=== PATIENT | female | born 1970 | race African-American/Black ===

== ENCOUNTER 2016-11-26 10:13 | Inpatient (IN) | payer OTHER ==
--- NOTE | 2016-11-26 10:23 | PDOC ---
History of Present Illness - General Chief Complaint: Shortness of Breath Stated Complaint: (PCP SENT) O2 TREATMENT Time Seen by Provider: 11/26/16 10:22 History Source: Patient - History of Present Illness Initial Comments: 11/26/16 13:05 46 year old female was sent by Dr. Sky from his office after he found high D- dimer and was desaturating. A/c to the patient, she developed respiratory tract infection like symptoms in October, saw her PCP and was given antibiotics. Even after completing the antibiotics, patients symtoms didn't resolve completely. Since then, has had persistent nasal stuffiness, felt congested in the chest, wheezing during evening and while laying down flat. Patient has been taking inhaler 3times/day 2-3times/week. Fever (Tmax 99F) no chills, rigors, sweating, cough, palpitations or chest pain. Denies abdominal pain, nausea or vomiting. Past Medical Hx: Asthma, H. pylori, Sarcoidosis (Dx in 2005), Hypertension Allergies: NKDA Surgical Hx: Left eyelid surgery, C-sec x 1, anorectal wart removal, liver biopsy for the dx of sarcoidosis. Hospitalization: No recent hospitalization Social: Current smoker, smokes 3 cigs/day since teenager Smokes marijuana, last smoked yesterday No other drugs PCP: Dr. Jaida Menchaca (Cardiologist0 Dr. Sky (Coupler) Past History - Past Medical History Allergies/Adverse Reactions: Allergies Allergy/AdvReac Type Severity Reaction Status Date / Time shellfish derived Allergy "SWELLING, Verified 11/26/16 10:16 THROAT CLOSES" Home Medications: Ambulatory Orders Albuterol Sulfate Inhaler - [Ventolin HFA Inhaler -] 1 - 2 inh PO PRN PRN Hydrochlorothiazide [Hctz -] 25 mg PO DAILY 01/15/15 Omeprazole [Prilosec] 40 mg PO DAILY 01/15/15 Cyanocobalamin [Vitamin B12 -] 100 mcg PO DAILY 01/24/15 Loratadine [Claritin -] 10 mg PO PRN PRN 01/24/15 Multivitamins [Multivit ([facility] Formulary)] 1 tab PO DAILY 01/24/15 Oxycodone HCl/Acetaminophen [Percocet 5/325 -] 1 - 2 tab PO Q6H #20 tab Prednisone 10 mg PO DAILY 11/26/16 Anemia: No Asthma: Yes (NO RECENT ATTACK) Cancer: (SARCOIDOSIS) Cardiac Disorders: No CVA: No COPD: No CHF: No Dementia: No Diabetes: No GI Disorders: Yes (GERD,) 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) HTN: Yes Hypercholesterolemia: No Liver Disease: Yes (ABNORMAL LIVER TEST) Seizures: No Thyroid Disease: No - Surgical History Abdominal Surgery: No Appendectomy: No Cardiac Surgery: No Cholecystectomy: No Lung Surgery: No Neurologic Surgery: No Orthopedic Surgery: No - Immunization History Immunization Up to Date: Yes - Psycho/Social/Smoking Cessation Hx Anxiety: No Suicidal Ideation: No Smoking History: Never smoked Have you smoked in the past 12 months: No Number of Cigarettes Smoked Daily: 3 Information on smoking cessation initiated: No 'Breaking Loose' booklet given: 10/08/15 Hx Alcohol Use: No Drug/Substance Use Hx: Yes Substance Use Type: Marijuana Hx Substance Use Treatment: No Review of Systems - Review of Systems Able to Perform ROS?: Yes Comments:: 11/26/16 14:39 CONSTITUTIONAL: Absent: fever, chills, diaphoresis, generalized weakness, malaise, loss of appetite HEENT: Present: nasal congestion Absent: rhinorrhea, throat pain, throat swelling, difficulty swallowing, mouth swelling, ear pain, eye pain, visual Changes CARDIOVASCULAR: Absent: chest pain, syncope, palpitations, irregular heart rate, lightheadedness , peripheral edema RESPIRATORY: Present: Occasional Wheezing,dyspnea with exertion Absent: cough, shortness of breath,orthopnea, wheezing, stridor, hemoptysis GASTROINTESTINAL: Absent: abdominal pain, abdominal distension, nausea, vomiting, diarrhea, constipation, melena, hematochezia GENITOURINARY: Absent: dysuria, frequency, urgency, hesitancy, hematuria, flank pain, genital pain MUSCULOSKELETAL:~ Absent: myalgia, arthralgia, joint swelling SKIN: Absent: rash, itching, pallor HEMATOLOGIC/IMMUNOLOGIC: Absent: easy bleeding, easy bruising, lymphadenopathy, frequent infections ENDOCRINE: Absent: unexplained weight gain, unexplained weight loss, heat intolerance, cold intolerance NEUROLOGIC: Absent: headache, focal weakness or paresthesias, dizziness, unsteady gait, seizure, mental status changes, bladder or bowel incontinence PSYCHIATRIC: Absent: anxiety, depression, suicidal or homicidal ideation, hallucinations. *Physical Exam - Vital Signs Last Vital Signs Temp Pulse Resp BP Pulse Ox 98.7 F 120 H 20 147/93 94 L 11/26/16 10:11/26/16 10:11/26/16 10:11/26/16 10:11/26/16 10:11/26/16 14:42 PE: GENERAL: Awake, alert, and fully oriented, in no acute distress HEAD: No signs of trauma EYES: B/L eyelid swelling (normal for her), minimal exophthalmus, PERRLA, EOMI, sclera anicteric, conjunctiva clear ENT: Auricles normal inspection, hearing grossly normal, nares patent, oropharynx clear without exudates. Moist mucosa NECK: Normal ROM, supple, no lymphadenopathy, JVD, or masses LUNGS: Breath sounds equal, clear to auscultation bilaterally. Occasional wheeze, and no crackles. HEART: Regular rate and rhythm, normal S1 and S2, no murmurs, rubs or gallops ABDOMEN: Soft, nontender, normoactive bowel sounds. No guarding, no rebound. No masses EXTREMITIES: Normal range of motion, no edema. No clubbing or cyanosis. No cords, erythema, or tenderness NEUROLOGICAL: Cranial nerves II through XII grossly intact. Normal speech, Gait not observed SKIN: Warm, Dry, normal turgor, no rashes or lesions noted. ED Treatment Course - LABORATORY CBC & Chemistry Diagram: 11/26/16 11:16 11/26/16 11:16 Medical Decision Making - Medical Decision Making 11/26/16 14:44 46 year old female with significant PMH oc Sarcoidosis (dx in 2005), Hypertension, H. pylori, Asthma, HTN was sent by Dr. Sky for the evaluation of increased D-dimer, desaturating at rest and SOB at exertion. # Dyspnea on exertion Differential diagnosis includes: Worsening of Sarcoidosis of the lung which is most likely Pneumonia likely as she recently got treated for LRTI but symptoms still persisting ACS less likely-No chest pain Less likely GI origin Ordered CBC, CMP, PEFR, UA, CTA EKG showed S1 Q3 T3 Most likely will admit the patient once we get results back. 11/26/16 15:25 Patient reassessed. Patient breathing comfortably with nasal oxygen @ 2L. All labs and imaging reviewed. # Acute Hypoxic respiratory failure Most likely secondary to underlying Sarcoidosis Patient's saturation ranges between 88-94% with nasal oxygen Pulmonary embolism ruled out-CTA negative for PE Discussed with Dr. Sky. Will admit the patient in Med-Surg for further evaluation Illness, Investigation and Plan of care explained to the patient. She verbalized understanding. Case seen and discussed with Dr. Sloan. *DC/Admit/Observation/Transfer Diagnosis at time of Disposition: Acute respiratory failure with hypoxia, Sarcoid - Discharge Dispostion Admit: Yes - Referrals Referrals: Jaida Keane, TRAINING AND DEVELOPMENT PROJECT LEADER [Primary Care Provider] -
[2016-11-26] MEDS ORDERED: methylPREDNISolone NA SUCC 125 MG/2 ML VIAL IVPB ONE (10:54)
[2016-11-26] MEDS: ALBUTEROL SO4 0.083% IH SOL 2.5 MG/3 ML VIAL.NEB. NEB PRN ×3 (11:00→11:40)
[2016-11-26] MEDS ORDERED: methylPREDNISolone NA SUCC 125 MG/2 ML VIAL ONE (11:04)
[2016-11-26 11:47] LABS: BASOPHIL 1.2 % (0-2.0); MCH 28.4 pg (25.7-33.7); MCHC 33.6 g/dl (32.0-36.0); MEAN CELL VOLUME 84.4 fl (80-96); MEAN PLT VOLUME 9.1 fl (7.5-11.1); NEUTROPHILS 56.2 % (42.8-82.8); PLATELET COUNT 180 K/MM3 (134-434); RDW 14.9 % (11.6-15.6); WHITE BLOOD COUNT 5.1 K/mm3 (4.0-10.0)
[2016-11-26 12:04] LABS: ALBUMIN 3.6 g/dl (3.4-5.0); ANION GAP 10 (8-16); BILIRUBIN,TOTAL 0.8 mg/dL (0.2-1.0); CO2 30 mmol/L (21-32); CREATININE 0.9 mg/dL (0.55-1.02); GLUCOSE,RANDOM 95 mg/dL (74-106); SGOT/AST 52 U/L (15-37); SGPT/ALT 41 U/L (12-78); TOT PROT 8.9 g/dl (6.4-8.2)
[2016-11-26 12:05] LABS: ALK PHOS 592 U/L (45-117)
[2016-11-26] MEDS ORDERED: OXYCODONE/APAP 5/325MG COMBO TABLET ONE (14:06)
[2016-11-26] MEDS ORDERED: OXYCODONE/APAP 5/325MG COMBO TABLET PO ONE (14:09)
--- NOTE | 2016-11-26 15:11 | EKG ---
Test Reason : Blood Pressure : / mmHG Vent. Rate : 101 BPM Atrial Rate : 101 BPM P-R Int : 128 ms QRS Dur : 084 ms QT Int : 360 ms P-R-T Axes : 050 028 010 degrees QTc Int : 466 ms SINUS TACHYCARDIA POSSIBLE LEFT ATRIAL ENLARGEMENT LEFT VENTRICULAR HYPERTROPHY ABNORMAL ECG WHEN COMPARED WITH ECG OF 09-OCT-2015 11:08, NO SIGNIFICANT CHANGE WAS FOUND Confirmed by TYLER NGUYỄN MD ([id number]) on 11/26/2016 3:10:59 PM Referred By: Confirmed By:TYLER NGUYỄN MD
--- NOTE | 2016-11-26 15:13 | PN ---
Progress Note (short form) - Note Progress Note: Cardiology Consult Dictated Sarcoidosis with skin and liver involvement Exercise O2 desaturation with sinus tachycardia and + D-dimer REC: 1. F/u CTA chest, r/o PE or presence of sarcoid lung involvement. 2. Echo to evaluate for PHTN
--- NOTE | 2016-11-26 15:38 | PDOC ---
Attending Attestation - Resident Resident Name: Neda Bell - ED Attending Attestation I have performed the following: I have examined & evaluated the patient, The case was reviewed & discussed with the resident, I agree w/resident's findings & plan, Exceptions are as noted - HPI HPI: 11/26/16 15:35 Patient is a 46-year-old female with history of sarcoid who presents to the ER with difficulty breathing, hypoxemia which is exacerbated with minimal exertion and an elevated d-dimer obtained at the outpatient lactation coordinator office. - Physicial Exam PE: 11/26/16 15:36 Patient is awake and alert, obese, hypoxemic requiring supplemental O2 via nasal cannula at 4 L/m to maintain oxygen saturation of 96-97%. Lungs are clear , there is no lower extremity edema, RRR, abdomen is soft and nontender. - Medical Decision Making 11/26/16 15:37 Patient is a 46-year-old female with history of sarcoidosis who presents with difficulty breathing and hypoxemia as well as elevated d-dimer. Differential diagnoses includes worsening interstitial lung disease versus pulmonary embolism versus infectious process. CBC/CMP within normal limit. CT of chest with IV contrast reveals no evidence of pulmonary embolism, bilateral increased calcified lymphadenopathy is noted. Increased interstitial markings are also noted. There is no evidence of an acute infectious process at this time. Patient will require admission for supplemental oxygen and steroid therapy at this time. Patient seen by Dr. Sky of pulmonary. He agrees with the plan of care.
--- NOTE | 2016-11-26 15:44 | HP ---
CHIEF COMPLAINT: Shortness of breath PCP: Dr. Jaida Keane Circulation Supervisor: Dr. 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 She has had dry cough, nasal congestion, and frontal headache past one month; she was recently treated by her PMD for bronchitis without . ER course was notable for: (1) EKG: Sinus tachycardia 101bpm with LVH, no significant change when compared with prior EKG of 10/09/2015 (2) CTA Chest: No evidence of PE. Interstitial thickening and nodularity ( mainly in the RUL) wit multiple mediastinal and hilar lymph nodes; no significant change when compared to prior of 12/16/2014 (3) Resting SpO2 92% on RA Recent Travel: None PAST MEDICAL HISTORY: As above PAST SURGICAL HISTORY: C/s x 1, excision of anal warts, liver biopsy Social History: Lives with daughter, receives disability Smokin cigarettes/daily Alcohol: None Drugs: Daily marijuana Family History: Non-contributory Allergies shellfish derived Allergy (Verified 11/26/16 10:16) "SWELLING, THROAT CLOSES" HOME MEDICATIONS: Home Medications Medication Instructions Recorded Albuterol Sulfate Inhaler - 1 - 2 inh PO PRN PRN 01/15/15 [Ventolin HFA Inhaler -] Hydrochlorothiazide [Hctz -] 25 mg PO DAILY 01/15/15 Omeprazole [Prilosec] 40 mg PO DAILY 01/15/15 Cyanocobalamin [Vitamin B12 -] 100 mcg PO DAILY 01/24/15 Loratadine [Claritin -] 10 mg PO PRN PRN 01/24/15 Multivitamins [Multivit ([facility] 1 tab PO DAILY 01/24/15 Formulary)] Oxycodone HCl/Acetaminophen 1 - 2 tab PO Q6H #20 tab 10/13/15 [Percocet 5/325 -] Prednisone 10 mg PO DAILY 11/26/16 REVIEW OF SYSTEMS CONSTITUTIONAL: Absent: fever, chills, diaphoresis, generalized weakness, malaise, loss of appetite, weight change HEENT: Nasal congestion, frontal headache Absent: rhinorrhea, throat pain, throat swelling, difficulty swallowing, mouth swelling, ear pain, eye pain, visual changes CARDIOVASCULAR: Absent: chest pain, syncope, palpitations, irregular heart rate, lightheadedness , peripheral edema RESPIRATORY: Shortness of breath on exertion, dry cough Absent: shortness of breath at rest, orthopnea, wheezing, stridor, hemoptysis GASTROINTESTINAL: Absent: abdominal pain, abdominal distension, nausea, vomiting, diarrhea, constipation, melena, hematochezia GENITOURINARY: Absent: dysuria, frequency, urgency, hesitancy, hematuria, flank pain, genital pain MUSCULOSKELETAL: Arthralgias, chronic low back pain Absent: joint swelling, neck pain SKIN: Absent: rash, itching, pallor HEMATOLOGIC/IMMUNOLOGIC: Absent: easy bleeding, easy bruising, lymphadenopathy, frequent infections ENDOCRINE: Absent: unexplained weight gain, unexplained weight loss, heat intolerance, cold intolerance NEUROLOGIC: Absent: headache, focal weakness or paresthesias, dizziness, unsteady gait, seizure, mental status changes, bladder or bowel incontinence PSYCHIATRIC: Absent: anxiety, depression, suicidal or homicidal ideation, hallucinations. PHYSICAL EXAMINATION Vital Signs - 24 hr 11/26/16 11/26/16 10:17 14:01 Temperature 98.7 F Pulse Rate 120 H Pulse Rate [ 112 H Apical] Respiratory 20 16 Rate Blood Pressure 147/93 Blood Pressure 146/78 [Right Arm] O2 Sat by Pulse 94 L Oximetry (%) GENERAL: Awake, alert, and fully oriented, in no acute distress. EYES: Pupils equal, round and reactive to light, extraocular movements intact, sclera anicteric, conjunctiva clear. No lid lag. EARS, NOSE, THROAT: Ears normal, nares patent, oropharynx clear without exudates. Moist mucous membranes. NECK: Normal range of motion, supple without lymphadenopathy, JVD, or masses. LUNGS: Scant expiratory wheezes. No tachypnea or accessory muscle use. HEART: Tachycardic. Regular rate and rhythm, normal S1 and S2 without murmur, rub or gallop. ABDOMEN: Soft, nontender, not distended, normoactive bowel sounds, no guarding, no rebound, no masses. No hepatomegaly or splenomegaly. MUSCULOSKELETAL: Normal range of motion at all joints. No bony deformities or tenderness. No CVA tenderness. UPPER EXTREMITIES: 2+ pulses, warm, well-perfused. No cyanosis. No clubbing. Cap refill <2 seconds. No peripheral edema. LOWER EXTREMITIES: 2+ pulses, warm, well-perfused. No calf tenderness. No peripheral edema. NEUROLOGICAL: Cranial nerves II-XII intact. Normal speech. Normal gait. PSYCHIATRIC: Cooperative. Good eye contact. Appropriate mood and affect. SKIN: Warm, dry, normal turgor, no rashes or lesions noted. Laboratory Results - last 24 hr 11/26/16 11/26/16 11/26/16 11:16 11:16 11:16 WBC 5.1 RBC 5.00 Hgb 14.2 Hct 42.2 MCV 84.4 MCHC 33.6 RDW 14.9 Plt Count 180 MPV 9.1 Neutrophils % 56.2 D Lymphocytes % 29.3 D Monocytes % 11.3 H Eosinophils % 2.0 D Basophils % 1.2 Sodium 138 Potassium 3.7 Chloride 98 Carbon Dioxide 30 Anion Gap 10 BUN 12 Creatinine 0.9 Creat Clearance w eGFR > 60 Random Glucose 95 Calcium 10.0 Total Bilirubin 0.8 AST 52 H ALT 41 Alkaline Phosphatase 592 H Total Protein 8.9 H Albumin 3.6 Serum , Qual Negative ASSESSMENT/PLAN: 46 year old female with hypoxemic respiratory failure, likely secondary to pulmonary sarcoidosis vs. pulmonary HTN. Problem List - Problem (1) Acute respiratory failure with hypoxia Assessment/Plan: -Supplemental O2 as needed to maintain saturation -Received Solu-Medrol 125mg IVPB in ED; continue 40mg IVPB q8h and taper as tolerated -Albuterol nebulizers q6h prn wheezing -Pulmonary following -Pre-/post-O2 saturation; evaluate for home O2 -Follow up echocardiogram; preliminary verbal report indicates pulmonary HTN Code(s): J96.01 - ACUTE RESPIRATORY FAILURE WITH HYPOXIA (2) Asthma Assessment/Plan: -As above Code(s): J45.909 - UNSPECIFIED ASTHMA, UNCOMPLICATED (3) Sarcoid Assessment/Plan: -As above Code(s): D86.9 - SARCOIDOSIS, UNSPECIFIED (4) HTN (hypertension) Assessment/Plan: -Slightly above goal -Continue home HCTZ -Monitor Code(s): I10 - ESSENTIAL (PRIMARY) HYPERTENSION (5) Nicotine dependence Assessment/Plan: -Nicoderm 7mg transdermal patch daily Code(s): F17.200 - NICOTINE DEPENDENCE, UNSPECIFIED, UNCOMPLICATED (6) DVT prophylaxis Assessment/Plan: -Lovenox 40mg sq daily -Early ambulation Code(s): CHT7941 - Visit type - Emergency Visit Emergency Visit: Yes ED Registration Date: 11/26/16 Care time: The patient presented to the Emergency Department on the above date and was hospitalized for further evaluation of their emergent condition. - New Patient This patient is new to me today: Yes Date on this admission: 11/26/16 - Critical Care Critical Care patient: No
[2016-11-26] MEDS ORDERED: OXYCODONE/APAP 5/325MG COMBO TABLET PO PRN (15:46)
--- NOTE | 2016-11-26 16:00 | PN ---
Progress Note (short form) - Note Progress Note: PULMONARY CONSULTATION DICTATED 11/26/16 IMP ACUTE HYPOXEMIC RESPIRATORY FAILURE ADVANCED PULMONARY SARCOID H/O ASTHMA RECENT URI LIKELY PULMONARY HTN LIKELY OSAS PLAN IV STEROIDS INHALED BRONCHODILATORS NASAL O2 ECHO PFTS OUTPATIENT SLEEP STUDIES OUTPATIENT DR PATEL Problem List - Problems (1) Acute respiratory failure with hypoxia Code(s): J96.01 - ACUTE RESPIRATORY FAILURE WITH HYPOXIA (2) Sarcoid Code(s): D86.9 - SARCOIDOSIS, UNSPECIFIED (3) Asthma Code(s): J45.909 - UNSPECIFIED ASTHMA, UNCOMPLICATED (4) HTN (hypertension) Code(s): I10 - ESSENTIAL (PRIMARY) HYPERTENSION
[2016-11-26] MEDS ORDERED: oxyCODONE HCL 5 MG TABLET PO PRN ×2 (16:18→16:19)
[2016-11-26] MEDS ORDERED: ACETAMINOPHEN 325 MG TABLET (FP) PO PRN ×2 (16:18→16:19)
[2016-11-26 18:03] VITALS: BMI 42.0
[2016-11-26] MEDS ORDERED: INFLUENZA VACCINE 45 MCG/0.5 ML (MDV 16-17) IM ONE (18:30)
[2016-11-26] MEDS: DOCUSATE SODIUM 100 MG CAPSULE (FP) PO SCH (21:48)
[2016-11-26] MEDS: ALPRAZolam 0.25 MG TABLET PO PRN (21:48)
[2016-11-26] MEDS: NICOTINE 7 MG/24 HOURS TOPICAL PATCH TD SCH (21:48)
[2016-11-26] MEDS: methylPREDNISolone NA SUCC 40 MG/1 ML VIAL IVPB SCH (21:49)
--- NOTE | 2016-11-26 22:03 | CONS ---
DATE OF CONSULTATION: 11/26/2016 REFERRING PHYSICIAN: Leonides Sloan MD HISTORY: The patient is a 46-year-old black female known to me from previous office visit with past medical history of sarcoidosis diagnosed in 2006 by liver biopsy , history of asthma, hypertension, history of tobacco use currently still smoking a few cigarettes daily admitted to [facility] with hypoxemia. The patient states she has developed a cough and URI symptoms in October. At the time, she was placed by a PMD on antibiotics. She initially showed some improvement. Since that time, she has had persistent shortness of breath and occasional cough and wheezing predominantly at night. She presented to my office yesterday. At the time, she denied any significant shortness of breath, chest pains, or palpable. Initially on physical examination she was noted to have normal O2 saturation of 95% on room air at rest as well as mildly tachycardic with a heart rate of 112. After walking her, her saturations dropped down to 85 with increasing heart rate. At the time, she was referred to [facility]. She went to [facility] and had a similar study performed that revealed the same results. D-dimer was performed, which at the time was elevated. She was advised to go to the hospital for further evaluation. In the ER, she underwent a CTA, which was negative for pulmonary embolism and feel just increase in interstitial markings bilaterally with no significant change since 2014. Of note, she is currently maintained on steroids 20 mg daily the past couple of years. She has been followed by a couple of different rheumatologists on an outpatient basis. She denies any fevers, weight loss, or night sweats. She denies hemoptysis. There is no history of respiratory failure on past ventilatory support. She also states she is a heavy snorer, and she also has occasional daytime sleepiness. Of note, sleep study was often recommended to her 2 years ago as well as 3 years ago, which she refused. Of note, I have not seen the patient in my office over the past 2-1/2 to 3 years. PAST MEDICAL HISTORY: Sarcoidosis, hypertension. SOCIAL HISTORY: Positive for history of tobacco use. Currently still smokes a few cigarettes daily. REVIEW OF SYSTEMS: No orthopnea. Positive cough. Positive occasional nocturnal wheezes. No chest pain, no palpitations. No fever, no weight loss, no night sweats, no hemoptysis. PHYSICAL EXAMINATION: General: The patient is a well-developed, well-nourished female awake and alert in no acute distress. Vital Signs: She is currently afebrile. Heart rate is 112 at rest, blood pressure 146/78, respiratory rate 16, O2 saturation 94% on 2 L. HEENT: Normocephalic and atraumatic. Neck: Supple. Heart: Tachycardic with a normal S1, S2. Chest: Diminished breath sounds bilaterally. Abdomen: Soft. Bowel sounds are positive. Extremities: No cyanosis or edema. LABORATORIES: WBC 5.1, hemoglobin 14.2, hematocrit 42.2 with a platelet count of 180,000. Electrolytes: BUN 12, creatinine 0.9. Of note, alkaline phosphatase is 592, AST 52, total protein 8.9, D-dimer 466. IMAGING STUDIES: Chest CT reveals no evidence of pulmonary embolism. There is interstitial thickening and nodularity mainly in the right upper lobe without change from previous exam in 2015 and multiple small mediastinal hilar nodes, which is no change. Evidence of splenomegaly and possible hepatomegaly. IMPRESSION: 1. Acute hypoxemic respiratory failure likely secondary to underlying advanced sarcoid. 2. Rule out possible interstitial lung disease. 3. Rule out possible underlying exacerbation of some chronic obstructive pulmonary disease secondary to recent upper respiratory infection. 4. Likely pulmonary hypertension. 5. Likely obstructive sleep apnea syndrome. PLAN: IV steroids, inhaled bronchodilators, supplemental O2. Also obtain echocardiogram. The patient will require home O2. A PFT as an outpatient. Monitor LFTs. Advise smoking cessation as well as sleep study as an outpatient. The patient consents. TOMAS PATEL M.D. [id number] MTDD
--- NOTE | 2016-11-26 22:19 | CONS ---
DATE OF CONSULTATION: 11/26/2016 CONSULTATION REQUESTED BY: Bassem Sky MD REASON FOR CONSULTATION: Exercise-induced tachycardia, possible pulmonary hypertension. HISTORY OF PRESENT ILLNESS: The patient is a 46-year-old female with sarcoidosis with skin and liver involvement, hypertension, admitted to the hospital by Dr. Sky for exercise-induced sinus tachycardia and O2 desaturation. The patient was also found to have an elevated D-dimer and was referred to the emergency room for a CTA of the chest to rule out pulmonary embolism, which is currently pending. On review of systems, she describes having flu in October with lingering symptoms, denies chest pain, chronic mild dyspnea on exertion, unchanged, no palpitations, syncope, or lower extremity edema. Denies fevers or chills. PAST MEDICAL HISTORY: Includes: 1. Sarcoidosis with involvement of the eyelid and skin, liver on liver biopsy. 2. Hypertension. 3. Seasonal allergies. 4. GERD. ALLERGIES: SHELLFISH. HOME MEDICATIONS: Prednisone 10 mg p.o. daily, Percocet 5/325 q.6 p.r.n., Prilosec 40 mg daily, multivitamin, Claritin 10 mg p.o. p.r.n., hydrochlorothiazide 25 mg p.o. daily, vitamin B12 and albuterol p.r.n. FAMILY HISTORY: Father had a myocardial infarction in his 60s. PAST SURGICAL HISTORY: Status post section, status post upper endoscopy. SOCIAL HISTORY: Smokes marijuana. No any loss of consciousness or illicit drugs. PHYSICAL EXAMINATION: Vital Signs: Temperature 98.7, pulse 112 and regular, blood pressure 146/78, O2 saturation 94 on 2 L. Neck: No bruits. No JVD. Heart: S1, S2 regular. No murmurs. Chest: No active wheezing. No rales. Abdomen: Obese, soft nontender. Extremities: No significant pitting edema. LABORATORY DATA: White count 5.1, hematocrit 42.2, platelets 180. Sodium 138, potassium 3.7, creatinine 0.9, AST 52, alkaline phosphatase 592, serum test negative. IMAGING: CTA scan of the chest is pending. Echo is pending. EKG shows sinus tachycardia, incomplete right bundle branch block, LVH. IMPRESSION: Sarcoidosis with skin and liver involvement with exercise induced oxygen desaturation and sins tachycardia with elevated D-dimer. PLAN: 1. Await results of CTA chest to rule out PE and/or cardiac lung involvement. 2. Echocardiogram today to rule out presence of pulmonary hypertension. Thanks for the consultation. TYLER NGUYỄN M.D. [id number]
[2016-11-27] MEDS: methylPREDNISolone NA SUCC 40 MG/1 ML VIAL IVPB SCH ×3 (02:23→18:25)
[2016-11-27] MEDS: DOCUSATE SODIUM 100 MG CAPSULE (FP) PO SCH ×3 (06:10→21:26)
[2016-11-27 07:57] LABS: BASOPHIL 0.2 % (0-2.0); MCH 28.3 pg (25.7-33.7); MCHC 33.4 g/dl (32.0-36.0); MEAN CELL VOLUME 84.6 fl (80-96); MEAN PLT VOLUME 8.9 fl (7.5-11.1); NEUTROPHILS 77.6 % (42.8-82.8); PLATELET COUNT 178 K/MM3 (134-434); RDW 14.8 % (11.6-15.6); WHITE BLOOD COUNT 3.8 K/mm3 (4.0-10.0)
[2016-11-27 08:28] LABS: ALBUMIN 3.4 g/dl (3.4-5.0); ANION GAP 10 (8-16); CALCIUM 9.8 mg/dL (8.5-10.1); CO2 30 mmol/L (21-32); CREATININE 0.9 mg/dL (0.55-1.02); GLUCOSE,RANDOM 120 mg/dL (74-106); MAGNESIUM 2.3 mg/dL (1.8-2.4); SGOT/AST 48 U/L (15-37); SGPT/ALT 45 U/L (12-78)
[2016-11-27 08:32] LABS: ALK PHOS 576 U/L (45-117); BILIRUBIN,TOTAL 0.8 mg/dL (0.2-1.0)
[2016-11-27] MEDS: ENOXAPARIN NA (PORCINE) 40 MG/0.4 ML DISP.SYRIN SQ SCH (10:02)
[2016-11-27] MEDS: HYDROCHLOROTHIAZIDE 25 MG TABLET (FP) PO SCH (10:02)
[2016-11-27] MEDS: PANTOPRAZOLE 40 MG TABLET (FP) PO SCH (10:02)
[2016-11-27] MEDS: MULTIVITAMINS (DAILY MVI) TABLET (FP) PO SCH (10:02)
[2016-11-27] MEDS: NICOTINE 7 MG/24 HOURS TOPICAL PATCH TD SCH (10:03)
[2016-11-27] MEDS: CYANOCOBALAMIN (VITAMIN B-12) 100 MCG TABLET PO SCH (11:00)
--- NOTE | 2016-11-27 11:04 | PN ---
Progress Note, Physician History of Present Illness: seen and examined today in [facility]. no overnight events. no new complaints. states she is feeling much better today. - Current Medication List Current Medications: Active Medications Acetaminophen (Tylenol -) 325 mg PO Q6H PRN PRN Reason: PAIN Acetaminophen (Tylenol -) 650 mg PO Q6H PRN PRN Reason: PAIN Albuterol Sulfate (Ventolin 0.083% Nebulizer Soln -) 1 amp NEB Q6H PRN PRN Reason: SHORT OF BREATH/WHEEZING Alprazolam (Xanax -) 0.25 mg PO Q8H PRN PRN Reason: ANXIETY Last Admin: 11/26/16 21:48 Dose: 0.25 mg Cyanocobalamin (Vitamin B12 -) 100 mcg PO DAILY [facility] Docusate Sodium (Colace -) 100 mg PO TID [facility] Last Admin: 11/27/16 06:10 Dose: 100 mg Enoxaparin Sodium (Lovenox -) 40 mg SQ DAILY [facility] Last Admin: 11/27/16 10:02 Dose: 40 mg Hydrochlorothiazide (Hctz -) 25 mg PO DAILY [facility] Last Admin: 11/27/16 10:02 Dose: 25 mg Methylprednisolone Sodium Succinate (Solu-Medrol -) 40 mg IVPB Q8H-IV [facility] Last Admin: 11/27/16 10:02 Dose: 40 mg Multivitamins/Minerals/Vitamin C (Tab-A-Vit -) 1 tab PO DAILY [facility] Last Admin: 11/27/16 10:02 Dose: 1 tab Nicotine (Nicoderm Patch -) 7 mg TD DAILY [facility] Last Admin: 11/27/16 10:03 Dose: 7 mg Oxycodone HCl (Roxicodone -) 5 mg PO Q6H PRN PRN Reason: PAIN SCALE 1-5 Last Admin: 11/27/16 05:06 Dose: 5 mg Oxycodone HCl (Roxicodone -) 10 mg PO Q6H PRN PRN Reason: PAIN SCALE 6-10 Pantoprazole Sodium (Protonix -) 40 mg PO DAILY [facility] Last Admin: 11/27/16 10:02 Dose: 40 mg - Objective Vital Signs: Vital Signs Temperature 98.0 F 11/27/16 04:00 Pulse Rate 100 H 11/27/16 04:00 Respiratory Rate 20 11/27/16 04:00 Blood Pressure 120/84 02/18/17 04:00 O2 Sat by Pulse Oximetry (%) 98 11/26/16 21:00 Constitutional: Yes: No Distress, Calm, Obese Eyes: Yes: WNL, Conjunctiva Clear, EOM Intact, PERRL HENT: Yes: WNL, Atraumatic, Normocephalic Neck: Yes: WNL, Supple, Trachea Midline Cardiovascular: Yes: WNL, Regular Rate and Rhythm, S1, S2. No: Bradycardia, Tachycardia, Pulse Irregular, Bruit, JVD, Gallop, Murmur, Rub, S3, S4, Varicosities Respiratory: Yes: Regular. No: Rales, Rhonchi, Wheezes Gastrointestinal: Yes: WNL, Normal Bowel Sounds, Soft. No: Distention, Tenderness Musculoskeletal: Yes: WNL Extremities: Yes: WNL Edema: No Peripheral Pulses WNL: Yes Peripheral Pulses: Left Doralis Pedis: 2+, Right Dorsalis Pedis: 2+ Integumentary: Yes: WNL Neurological: Yes: WNL, Alert, Oriented, Cran Nerves II-XII Intact ...Motor Strength: WNL Psychiatric: Yes: WNL, Alert, Oriented Labs: CBC, BMP 11/27/16 06:30 11/27/16 06:30 - ....Imaging Chest X-ray: Report Reviewed, Image Reviewed EKG: Report Reviewed, Image Reviewed Other: Report Reviewed, Image Reviewed Assessment/Plan Sarcoidosis with skin and liver involvement Exercise O2 desaturation with sinus tachycardia and + D-dimer REC: CTA chest showed no PE, but confirmed evidence of sarcoid Echo grossly normal LV function no pericardial effusion, unable to assess Pulm pressure Pt significantly improved since admission No additional inpatient cardiac work up needed at this point Pulm f/up
[2016-11-27] MEDS: ALBUTEROL SO4 0.083% IH SOL 2.5 MG/3 ML VIAL.NEB. NEB PRN (13:01)
--- NOTE | 2016-11-27 13:46 | PN ---
Progress Note (short form) - Note Progress Note: PULMONARY VSS/AFEBRILE 98% 2L/M O2 WANTS TO GO HOME ANICTERIC CLEAR S1S2 BS+OBESE NO EDEMA IMAGING/NOTES/MEDS/LABS REVIEWED IMP ACUTE HYPOXEMIC RESPIRATORY FAILURE ADVANCED PULMONARY SARCOID H/O ASTHMA RECENT URI LIKELY PULMONARY HTN LIKELY OSAS PLAN IV STEROIDS INHALED BRONCHODILATORS NASAL O2 ECHO PFTS OUTPATIENT SLEEP STUDIES OUTPATIENT WILL CHECK PRE/POST SPO2 R/A AMBULATION Ja LEBLANC MD
--- NOTE | 2016-11-27 13:59 | PN ---
Physical Exam: SUBJECTIVE: Patient seen and examined Patient is feeling better, with no acute distress, steroid IV helping her symptoms OBJECTIVE: Vital Signs Temperature 97.5 F L 11/27/16 08:00 Pulse Rate 69 11/27/16 08:00 Respiratory Rate 16 11/27/16 08:00 Blood Pressure 121/77 11/27/16 08:00 O2 Sat by Pulse Oximetry (%) 98 11/26/16 21:00 GENERAL: The patient is awake, alert, and fully oriented, in no acute distress. HEAD: Normal with no signs of trauma. EYES: PERRL, extraocular movements intact, sclera anicteric, conjunctiva clear. No ptosis. ENT: Ears normal, nares patent, oropharynx clear without exudates, moist mucous membranes. NECK: Trachea midline, full range of motion, supple. LUNGS: decreased Breath sounds BL, otherwise clear, no wheezes, no crackles, no accessory muscle use. HEART: Regular rate and rhythm, S1, S2 without murmur, rub or gallop. ABDOMEN: Soft, nontender, nondistended, normoactive bowel sounds, no guarding, no rebound, no hepatosplenomegaly, no masses. EXTREMITIES: 2+ pulses, warm, well-perfused, no edema. NEUROLOGICAL: Cranial nerves II through XII grossly intact. Normal speech, gait not observed. PSYCH: Normal mood, normal affect. SKIN: Warm, dry, normal turgor, no rashes or lesions noted Laboratory Results - last 24 hr 11/27/16 11/27/16 06:30 06:30 WBC 3.8 L RBC 4.87 Hgb 13.8 Hct 41.2 MCV 84.6 MCHC 33.4 RDW 14.8 Plt Count 178 MPV 8.9 Neutrophils % 77.6 D Lymphocytes % 18.7 D Monocytes % 3.5 L Eosinophils % 0.0 D Basophils % 0.2 Sodium 138 Potassium 4.1 Chloride 98 Carbon Dioxide 30 Anion Gap 10 BUN 16 D Creatinine 0.9 Creat Clearance w eGFR > 60 Random Glucose 120 H D Calcium 9.8 Magnesium 2.3 Total Bilirubin 0.8 AST 48 H ALT 45 Alkaline Phosphatase 576 H Total Protein 9.0 H Albumin 3.4 Active Medications Generic Name Dose Route Start Last Admin Trade Name Freq PRN Reason Stop Dose Admin Acetaminophen 325 mg 11/26/16 16:18 Tylenol - PO Q6H PRN PAIN Acetaminophen 650 mg 11/26/16 16:19 Tylenol - PO Q6H PRN PAIN Albuterol Sulfate 1 amp 11/26/16 15:47 11/27/16 13:01 Ventolin 0.083% Nebulizer Soln - NEB 1 amp Q6H PRN Administration SHORT OF BREATH/WHEEZING Alprazolam 0.25 mg 11/26/16 16:29 11/26/16 21:48 Xanax - PO 0.25 mg Q8H PRN Administration ANXIETY Cyanocobalamin 100 mcg 11/27/16 10:00 Vitamin B12 - PO DAILY [facility] Docusate Sodium 100 mg 11/26/16 22:00 11/27/16 06:10 Colace - PO 100 mg TID [facility] Administration Enoxaparin Sodium 40 mg 11/27/16 10:00 11/27/16 10:02 Lovenox - SQ 40 mg DAILY [facility] Administration Hydrochlorothiazide 25 mg 11/27/16 10:00 11/27/16 10:02 Hctz - PO 25 mg DAILY [facility] Administration Methylprednisolone Sodium Succinate 40 mg 11/26/16 18:00 11/27/16 10:02 Solu-Medrol - IVPB 40 mg Q8H-IV [facility] Administration Multivitamins/Minerals/Vitamin C 1 tab 11/27/16 10:00 11/27/16 10:02 Tab-A-Vit - PO 1 tab DAILY [facility] Administration Nicotine 7 mg 11/26/16 16:00 11/27/16 10:03 Nicoderm Patch - TD 7 mg DAILY [facility] Administration Oxycodone HCl 5 mg 11/26/16 16:18 11/27/16 05:06 Roxicodone - PO 5 mg Q6H PRN Administration PAIN SCALE 1-5 Oxycodone HCl 10 mg 11/26/16 16:19 Roxicodone - PO Q6H PRN PAIN SCALE 6-10 Pantoprazole Sodium 40 mg 11/27/16 10:00 11/27/16 10:02 Protonix - PO 40 mg DAILY [facility] Administration CTA chest showed no PE, but confirmed evidence of sarcoid Echocardiogram; Reviewed Echo grossly normal LV function no pericardial effusion, unable to assess Pulm pressure Pt significantly improved since admission ASSESSMENT/PLAN: 46 year old female with hypoxemic respiratory failure, likely secondary to pulmonary sarcoidosis vs. pulmonary HTN. # Acute hypoxic respiratory failure on 2l oxygen keep sats.above 93% Received Solu-Medrol 125mg IVPB in ED; continue 40mg IVPB q8h , Albuterol nebulizers q6h prn wheezing Pulmonary consult appreciated , evaluate for home O2. # Asthma on IV Solu Medrol will continue # Acute Pulmonary sarcoidosis on BRONCHODILATORS # Chronic Back pain On Oxycodone continue # Pulmonary HTN # Nicotine dependence-Nicoderm 7mg transdermal patch daily PFT, sleep studies as an outpatient DVT Px: SCds Visit type - Emergency Visit Emergency Visit: Yes ED Registration Date: 11/26/16 Care time: The patient presented to the Emergency Department on the above date and was hospitalized for further evaluation of their emergent condition. - New Patient This patient is new to me today: Yes Date on this admission: 11/27/16 - Critical Care Critical Care patient: No
[2016-11-27] MEDS: ALPRAZolam 0.25 MG TABLET PO PRN (18:25)
[2016-11-28] MEDS: methylPREDNISolone NA SUCC 40 MG/1 ML VIAL IVPB SCH ×2 (02:05→10:57)
[2016-11-28] MEDS: DOCUSATE SODIUM 100 MG CAPSULE (FP) PO SCH ×2 (06:09→14:15)
[2016-11-28] MEDS ORDERED: PT OWN MED DRAWER 7, Y5N ONE (09:27)
[2016-11-28] MEDS: ENOXAPARIN NA (PORCINE) 40 MG/0.4 ML DISP.SYRIN SQ SCH (10:56)
[2016-11-28] MEDS: NICOTINE 7 MG/24 HOURS TOPICAL PATCH TD SCH (10:56)
[2016-11-28] MEDS: PANTOPRAZOLE 40 MG TABLET (FP) PO SCH (10:57)
[2016-11-28] MEDS: MULTIVITAMINS (DAILY MVI) TABLET (FP) PO SCH (10:57)
[2016-11-28] MEDS: HYDROCHLOROTHIAZIDE 25 MG TABLET (FP) PO SCH (10:57)
[2016-11-28 11:21] VITALS: BP 122/84
[2016-11-28] MEDS: ALBUTEROL SO4 0.083% IH SOL 2.5 MG/3 ML VIAL.NEB. NEB PRN (11:40)
[2016-11-28 14:13] VITALS: PULSE 83; TEMP 97.5
[2016-11-28] MEDS: CYANOCOBALAMIN (VITAMIN B-12) 100 MCG TABLET PO SCH (14:15)
--- NOTE | 2016-11-28 14:39 | PN ---
Progress Note (short form) - Note Progress Note: PULMONARY VSS/AFEBRILE 98% ON R/A AFTER WALKING WANTS TO GO HOME ANICTERIC CLEAR S1S2 BS+OBESE NO EDEMA IMAGING/NOTES/MEDS/LABS REVIEWED IMP ACUTE HYPOXEMIC RESPIRATORY FAILURE ADVANCED PULMONARY SARCOID H/O ASTHMA RECENT URI LIKELY PULMONARY HTN LIKELY OSAS PLAN STEROIDS CHANGED TO ORAL INHALED BRONCHODILATORS NASAL O2 ECHO PFTS OUTPATIENT SLEEP STUDIES OUTPATIENT OK FOR DISCHARGE Ja LEBLANC MD
[2016-11-28] MEDS ORDERED: predniSONE 20 MG TABLET (UD) PO SCH (14:45)
--- NOTE | 2016-11-28 15:26 | PN ---
Progress Note (short form) - Note Progress Note: Patient is comfortable, would like to go home. Vital Signs Temperature 97.5 F L 11/28/16 14:13 Pulse Rate 83 11/28/16 14:13 Respiratory Rate 18 11/28/16 14:13 Blood Pressure 122/84 11/28/16 11:21 O2 Sat by Pulse Oximetry (%) 100 11/28/16 11:40 GENERAL: The patient is awake, alert, and fully oriented, in no acute distress. HEAD: Normal with no signs of trauma. EYES: PERRL, extraocular movements intact, sclera anicteric, conjunctiva clear. ENT: Ears normal, oropharynx clear without exudates, moist mucous membranes. NECK: Trachea midline, full range of motion, supple. LUNGS: Breath sounds equal, clear to auscultation bilaterally, no wheezes, no crackles, no accessory muscle use. HEART: Regular rate and rhythm, S1, S2 without murmur, rub or gallop. ABDOMEN: Soft, nontender, nondistended, normoactive bowel sounds, no guarding, no rebound, no hepatosplenomegaly, no masses. EXTREMITIES: 2+ pulses, warm, well-perfused, no edema. NEUROLOGICAL: Cranial nerves II through XII grossly intact. Normal speech, gait is steady . PSYCH: Normal mood, normal affect. SKIN: Warm, dry, normal turgor, no rashes or lesions noted CBCD WBC 3.8 K/mm3 (4.0-10.0) L 11/27/16 06:30 RBC 4.87 M/mm3 (3.60-5.2) 11/27/16 06:30 Hgb 13.8 GM/dL (10.7-15.3) 11/27/16 06:30 Hct 41.2 % (32.4-45.2) 11/27/16 06:30 MCV 84.6 fl (80-96) 11/27/16 06:30 MCHC 33.4 g/dl (32.0-36.0) 11/27/16 06:30 RDW 14.8 % (11.6-15.6) 11/27/16 06:30 Plt Count 178 K/MM3 (134-434) 11/27/16 06:30 MPV 8.9 fl (7.5-11.1) 11/27/16 06:30 CMP Sodium 138 mmol/L (136-145) 11/27/16 06:30 Potassium 4.1 mmol/L (3.5-5.1) 11/27/16 06:30 Chloride 98 mmol/L (98-107) 11/27/16 06:30 Carbon Dioxide 30 mmol/L (21-32) 11/27/16 06:30 Anion Gap 10 (8-16) 11/27/16 06:30 BUN 16 mg/dL (7-18) D 11/27/16 06:30 Creatinine 0.9 mg/dL (0.55-1.02) 11/27/16 06:30 Creat Clearance w eGFR > 60 (>60) 11/27/16 06:30 Random Glucose 120 mg/dL (74-106) H D 11/27/16 06:30 Calcium 9.8 mg/dL (8.5-10.1) 11/27/16 06:30 Total Bilirubin 0.8 mg/dL (0.2-1.0) 11/27/16 06:30 AST 48 U/L (15-37) H 11/27/16 06:30 ALT 45 U/L (12-78) 11/27/16 06:30 Alkaline Phosphatase 576 U/L (45-117) H 11/27/16 06:30 Total Protein 9.0 g/dl (6.4-8.2) H 11/27/16 06:30 Albumin 3.4 g/dl (3.4-5.0) 11/27/16 06:30 Current Medications Generic Name Dose Route Start Last Admin Trade Name Freq PRN Reason Stop Dose Admin Acetaminophen 325 mg 11/26/16 16:18 Tylenol - PO Q6H PRN PAIN Acetaminophen 650 mg 11/26/16 16:19 Tylenol - PO Q6H PRN PAIN Albuterol Sulfate 1 amp 11/26/16 15:47 11/28/16 11:40 Ventolin 0.083% Nebulizer Soln - NEB 1 amp Q6H PRN Administration SHORT OF BREATH/WHEEZING Alprazolam 0.25 mg 11/26/16 16:29 11/27/16 18:25 Xanax - PO 0.25 mg Q8H PRN Administration ANXIETY Cyanocobalamin 100 mcg 11/27/16 10:00 02/19/17 14:15 Vitamin B12 - PO 100 mcg DAILY [facility] Administration Docusate Sodium 100 mg 11/26/16 22:00 11/28/16 14:15 Colace - PO 100 mg TID [facility] Administration Enoxaparin Sodium 40 mg 11/27/16 10:00 11/28/16 10:56 Lovenox - SQ 40 mg DAILY [facility] Administration Hydrochlorothiazide 25 mg 11/27/16 10:00 11/28/16 10:57 Hctz - PO 25 mg DAILY [facility] Administration Multivitamins/Minerals/Vitamin C 1 tab 11/27/16 10:00 11/28/16 10:57 Tab-A-Vit - PO 1 tab DAILY [facility] Administration Nicotine 7 mg 11/26/16 16:00 11/28/16 10:56 Nicoderm Patch - TD 7 mg DAILY [facility] Administration Oxycodone HCl 5 mg 11/26/16 16:18 11/27/16 05:06 Roxicodone - PO 5 mg Q6H PRN Administration PAIN SCALE 1-5 Pantoprazole Sodium 40 mg 11/27/16 10:00 11/28/16 10:57 Protonix - PO 40 mg DAILY [facility] Administration Prednisone 20 mg 11/28/16 14:45 Deltasone - PO DAILY [facility] Home Medications Medication Instructions Recorded Albuterol Sulfate Inhaler - 1 - 2 inh PO PRN PRN 01/15/15 [Ventolin HFA Inhaler -] Hydrochlorothiazide [Hctz -] 25 mg PO DAILY 01/15/15 Omeprazole [Prilosec] 40 mg PO DAILY 01/15/15 Cyanocobalamin [Vitamin B12 -] 100 mcg PO DAILY 01/24/15 Loratadine [Claritin -] 10 mg PO PRN PRN 01/24/15 Multivitamins [Multivit ([facility] 1 tab PO DAILY 01/24/15 Formulary)] Docusate Sodium [Colace -] 100 mg PO TID capsule 11/28/16 Oxycodone HCl/Acetaminophen 1 tab PO Q6H #12 tab MDD 4 11/28/16 [Percocet 5-325 mg Tablet] Prednisone [Deltasone -] 20 mg PO DAILY tablet 11/28/16 CTA chest showed no PE, but confirmed evidence of sarcoid Echocardiogram; Reviewed Echo grossly normal LV function no pericardial effusion, unable to assess Pulm pressure Pt significantly improved since admission ASSESSMENT/PLAN: 46 year old female with hypoxemic respiratory failure, likely due to pulmonary sarcoidosis # Acute hypoxic respiratory failure due improved ,discussed with ok to discharge the patient on Prednisone 20mg po daily .continue nebulizers q6h prn wheezing # Asthma on steroid continue # Acute Pulmonary sarcoidosis BRONCHODILATORS # Pulmonary HTN # Nicotine dependence-Nicoderm 7mg transdermal patch daily PFT, sleep studies as an outpatient with follow with in a week Visit type - Emergency Visit Emergency Visit: Yes ED Registration Date: 11/26/16 Care time: The patient presented to the Emergency Department on the above date and was hospitalized for further evaluation of their emergent condition. - New Patient This patient is new to me today: No - Critical Care Critical Care patient: No
--- NOTE | 2016-11-28 17:55 | DS ---
Physical Exam: SUBJECTIVE: Patient seen and examined Patient is comfortable, would like to go home. OBJECTIVE: Vital Signs Temperature 97.5 F L 11/28/16 14:13 Pulse Rate 83 11/28/16 14:13 Respiratory Rate 18 11/28/16 14:13 Blood Pressure 122/84 11/28/16 11:21 O2 Sat by Pulse Oximetry (%) 100 11/28/16 11:40 PHYSICAL EXAM GENERAL: The patient is awake, alert, and fully oriented, in no acute distress. HEAD: Normal with no signs of trauma. EYES: PERRL, extraocular movements intact, sclera anicteric, conjunctiva clear. ENT: Ears normal, oropharynx clear without exudates, moist mucous membranes. NECK: Trachea midline, full range of motion, supple. LUNGS: Breath sounds equal, clear to auscultation bilaterally, no wheezes, no crackles, no accessory muscle use. HEART: Regular rate and rhythm, S1, S2 without murmur, rub or gallop. ABDOMEN: Soft, nontender, nondistended, normoactive bowel sounds, no guarding, no rebound, no hepatosplenomegaly, no masses. EXTREMITIES: 2+ pulses, warm, well-perfused, no edema. NEUROLOGICAL: Cranial nerves II through XII grossly intact. Normal speech, gait is steady . PSYCH: Normal mood, normal affect. SKIN: Warm, dry, normal turgor, no rashes or lesions noted CBCD WBC 3.8 K/mm3 (4.0-10.0) L 11/27/16 06:30 RBC 4.87 M/mm3 (3.60-5.2) 11/27/16 06:30 Hgb 13.8 GM/dL (10.7-15.3) 11/27/16 06:30 Hct 41.2 % (32.4-45.2) 11/27/16 06:30 MCV 84.6 fl (80-96) 11/27/16 06:30 MCHC 33.4 g/dl (32.0-36.0) 11/27/16 06:30 RDW 14.8 % (11.6-15.6) 11/27/16 06:30 Plt Count 178 K/MM3 (134-434) 11/27/16 06:30 MPV 8.9 fl (7.5-11.1) 11/27/16 06:30 CMP Sodium 138 mmol/L (136-145) 11/27/16 06:30 Potassium 4.1 mmol/L (3.5-5.1) 11/27/16 06:30 Chloride 98 mmol/L (98-107) 11/27/16 06:30 Carbon Dioxide 30 mmol/L (21-32) 11/27/16 06:30 Anion Gap 10 (8-16) 11/27/16 06:30 BUN 16 mg/dL (7-18) D 11/27/16 06:30 Creatinine 0.9 mg/dL (0.55-1.02) 11/27/16 06:30 Creat Clearance w eGFR > 60 (>60) 11/27/16 06:30 Random Glucose 120 mg/dL (74-106) H D 11/27/16 06:30 Calcium 9.8 mg/dL (8.5-10.1) 11/27/16 06:30 Total Bilirubin 0.8 mg/dL (0.2-1.0) 11/27/16 06:30 AST 48 U/L (15-37) H 11/27/16 06:30 ALT 45 U/L (12-78) 11/27/16 06:30 Alkaline Phosphatase 576 U/L (45-117) H 11/27/16 06:30 Total Protein 9.0 g/dl (6.4-8.2) H 11/27/16 06:30 Albumin 3.4 g/dl (3.4-5.0) 11/27/16 06:30 Home Medications Medication Instructions Recorded Albuterol Sulfate Inhaler - 1 - 2 inh PO PRN PRN 01/15/15 [Ventolin HFA Inhaler -] Hydrochlorothiazide [Hctz -] 25 mg PO DAILY 01/15/15 Omeprazole [Prilosec] 40 mg PO DAILY 01/15/15 Cyanocobalamin [Vitamin B12 -] 100 mcg PO DAILY 01/24/15 Loratadine [Claritin -] 10 mg PO PRN PRN 01/24/15 Multivitamins [Multivit ([facility] 1 tab PO DAILY 01/24/15 Formulary)] Docusate Sodium [Colace -] 100 mg PO TID capsule 11/28/16 Oxycodone HCl/Acetaminophen 1 tab PO Q6H #12 tab MDD 4 11/28/16 [Percocet 5-325 mg Tablet] Prednisone [Deltasone -] 20 mg PO DAILY tablet 11/28/16 Current Medications Generic Name Dose Route Start Last Admin Trade Name Freq PRN Reason Stop Dose Admin Acetaminophen 325 mg 11/26/16 16:18 Tylenol - PO Q6H PRN PAIN Acetaminophen 650 mg 11/26/16 16:19 Tylenol - PO Q6H PRN PAIN Albuterol Sulfate 1 amp 11/26/16 15:47 11/28/16 11:40 Ventolin 0.083% Nebulizer Soln - NEB 1 amp Q6H PRN Administration SHORT OF BREATH/WHEEZING Alprazolam 0.25 mg 11/26/16 16:29 11/27/16 18:25 Xanax - PO 0.25 mg Q8H PRN Administration ANXIETY Cyanocobalamin 100 mcg 11/27/16 10:00 11/28/16 14:15 Vitamin B12 - PO 100 mcg DAILY [facility] Administration Docusate Sodium 100 mg 11/26/16 22:00 11/28/16 14:15 Colace - PO 100 mg TID [facility] Administration Enoxaparin Sodium 40 mg 11/27/16 10:00 11/28/16 10:56 Lovenox - SQ 40 mg DAILY [facility] Administration Hydrochlorothiazide 25 mg 11/27/16 10:00 11/28/16 10:57 Hctz - PO 25 mg DAILY [facility] Administration Multivitamins/Minerals/Vitamin C 1 tab 11/27/16 10:00 11/28/16 10:57 Tab-A-Vit - PO 1 tab DAILY [facility] Administration Nicotine 7 mg 11/26/16 16:00 11/28/16 10:56 Nicoderm Patch - TD 7 mg DAILY [facility] Administration Oxycodone HCl 5 mg 11/26/16 16:18 11/27/16 05:06 Roxicodone - PO 5 mg Q6H PRN Administration PAIN SCALE 1-5 Pantoprazole Sodium 40 mg 11/27/16 10:00 11/28/16 10:57 Protonix - PO 40 mg DAILY [facility] Administration Prednisone 20 mg 11/28/16 14:45 Deltasone - PO DAILY [facility] CTA chest showed no PE, but confirmed evidence of sarcoid Echocardiogram; Reviewed Echo grossly normal LV function no pericardial effusion, unable to assess Pulm pressure Pt significantly improved since admission HOSPITAL COURSE: Date of Admission:11/26/16 Date of Discharge: 11/28/16 46 year old female with hypoxemic respiratory failure, likely due to pulmonary sarcoidosis # Acute hypoxic respiratory failure due improved ,discussed with ok to discharge the patient on Prednisone 20mg po daily .continue nebulizers q6h prn wheezing # Asthma on steroid continue # Acute Pulmonary sarcoidosis BRONCHODILATORS # Pulmonary HTN # Nicotine dependence-Nicoderm 7mg transdermal patch daily PFT, sleep studies as an outpatient with follow with in a week Minutes to complete discharge: 35 Discharge Summary Reason For Visit: ACUTE RESPIRATORY FAILURE WITH HYPOXIA Current Active Problems Acute respiratory failure with hypoxia (Acute) Asthma (Acute) DVT prophylaxis (Acute) HTN (hypertension) (Acute) Nicotine dependence (Acute) Sarcoid (Acute) Condition: Stable - Instructions Diet, Activity, Other Instructions: Low fat/Low carb diet Pulmonary Function test ,and sleep studies as an outpatient with Referrals: Jaida Keane NP [Primary Care Provider] - Td Suarez MD [Staff Physician] - 1 Week Disposition: HOME - Home Medications Comprehensive Discharge Medication List: Ambulatory Orders Albuterol Sulfate Inhaler - [Ventolin HFA Inhaler -] 1 - 2 inh PO PRN PRN Hydrochlorothiazide [Hctz -] 25 mg PO DAILY 01/15/15 Omeprazole [Prilosec] 40 mg PO DAILY 01/15/15 Cyanocobalamin [Vitamin B12 -] 100 mcg PO DAILY 01/24/15 Loratadine [Claritin -] 10 mg PO PRN PRN 01/24/15 Multivitamins [Multivit ([facility] Formulary)] 1 tab PO DAILY 01/24/15 Docusate Sodium [Colace -] 100 mg PO TID capsule 11/28/16 Oxycodone HCl/Acetaminophen [Percocet 5-325 mg Tablet] 1 tab PO Q6H #12 tab MDD 4 11/28/16 Prednisone [Deltasone -] 20 mg PO DAILY tablet 11/28/16 This patient is new to me today: No Emergency Visit: Yes ED Registration Date: 11/26/16 Care time: The patient presented to the Emergency Department on the above date and was hospitalized for further evaluation of their emergent condition. Critical Care patient: No - Discharge Referral Referred to [facility] No
== END 2016-11-28 17:30 | disposition home or self-care (01) | DRG 133 ==
LOC: JER 10:13 → JERBED 15:43 → J7W 17:00
PROVIDERS: ADMIT Internal Medicine; ATTEND Internal Medicine
DX: J96.01 Acute respiratory failure with hypoxia (principal); D86.9 Sarcoidosis, unspecified; F17.210 Nicotine dependence, cigarettes, uncomplicated; I10 Essential (primary) hypertension; I27.2 Other secondary pulmonary hypertension; G47.33 Obstructive sleep apnea (adult) (pediatric); M54.89 Other dorsalgia
CPT/HCPCS: 36415; 71260-TC; 80053; 83735; 84703; 85025; 93005; 93010; 93306-TC; 94640; 94761; 99284-25; G0008; Q2037

== ENCOUNTER 2020-12-02 14:06 | Emergency (ER) | payer OTHER ==
[2020-12-02 14:14] VITALS: BP 113/79; PULSE 99; TEMP 97.5; BMI 35.2
[2020-12-02] MEDS ORDERED: ACETAMINOPHEN 500 MG TABLET (FP) PO ONE (14:48)
[2020-12-02] MEDS ORDERED: ACETAMINOPHEN 500 MG TABLET (FP) ONE (14:50)
== END 2020-12-02 15:04 | disposition home or self-care (01) ==
LOC: JERFT 14:06
DX: M25.571 Pain in right ankle and joints of right foot (principal); M25.572 Pain in left ankle and joints of left foot
CPT/HCPCS: 99283-25

== ENCOUNTER 2021-02-06 14:35 | Inpatient (IN) | payer OTHER ==
[2021-02-06] MEDS ORDERED: LACTATED RINGERS SOLUTION 1000 ML INFUS.BAG IV ONE (15:14)
[2021-02-06 15:43] LABS: BASO % 0.8 % (0-2.0); HEMATOCRIT 39.2 % (32.4-45.2); HEMOGLOBIN 13.1 GM/dL (10.7-15.3); LYMPH % 14.1 % (8-40); MCH 32.4 pg (25.7-33.7); MCHC 33.6 g/dl (32.0-36.0); MEAN CELL VOLUME 96.5 fl (80-96); MEAN PLT VOLUME 9.2 fl (7.5-11.1); MONO % 2.8 % (3.8-10.2); NEUT % 82.3 % (42.8-82.8); PLATELET COUNT 189 K/MM3 (134-434); RBC 4.06 M/mm3 (3.60-5.2); WHITE BLOOD COUNT 9.3 K/mm3 (4.0-10.0)
[2021-02-06 16:10] LABS: CALCIUM 8.8 mg/dL (8.5-10.1)
[2021-02-06 16:11] LABS: ALBUMIN 3.1 g/dl (3.4-5.0); BLOOD UREA NITROGEN 18.8 mg/dL (7-18); MAGNESIUM 2.1 mg/dL (1.8-2.4)
[2021-02-06 16:14] LABS: CREATININE 1.2 mg/dL (0.55-1.3)
[2021-02-06 16:15] LABS: BILIRUBIN,TOTAL 0.4 mg/dL (0.2-1)
[2021-02-06 16:17] LABS: TOT PROT 7.7 g/dl (6.4-8.2)
[2021-02-06] MEDS ORDERED: ACETAMINOPHEN 325 MG TABLET (FP) PO ONE (17:06)
[2021-02-06] MEDS ORDERED: ACETAMINOPHEN 325 MG TABLET (FP) ONE (17:28)
[2021-02-06] MEDS ORDERED: ERYTHROMYCIN 0.5% OPHTHALMIC OINTMENT 3.5 GM TUBE OS ONE (18:20)
[2021-02-06 19:11] LABS: EPI CELLS 18 /uL (0-25.1); HYALINE CASTS 0 /uL (0-3.1); PH,URINE 6.5 (5.0-8.0); URINE APPEARANCE CLEAR; URINE BACTERIA 1466 /uL (0-1359); URINE BILIRUBIN NEGATIVE (NEGATIVE); URINE COLOR YELLOW; URINE GLUCOSE (UA) NEGATIVE (NEGATIVE); URINE KETONE NEGATIVE (NEGATIVE); URINE LEUK ESTERASE 1+ (NEGATIVE); URINE NITRITE NEGATIVE (NEGATIVE); URINE PROTEIN NEGATIVE (NEGATIVE); URINE RBC 4 /uL (0-23.9); URINE UROBILINOGEN 0.2 mg/dL (0.2-1.0); URINE WBC 31 /uL (0-25.8)
[2021-02-06] MEDS ORDERED: CEFTRIAXONE 1,000 MG in DEXTROSE 5%-WATER - 50 ML IVPB ONE (19:13)
[2021-02-06] MEDS ORDERED: CEFTRIAXONE 1 GM/50 ML BAG ONE (19:25)
[2021-02-06] MEDS ORDERED: ERYTHROMYCIN 0.5% OPHTHALMIC OINTMENT 3.5 GM TUBE ONE (19:25)
[2021-02-06] MEDS ORDERED: SODIUM CHLORIDE 0.9% 1000 ML INFUS.BAG IV ONE (21:17)
[2021-02-06] MEDS ORDERED: ALBUTEROL SO4 HFA INHALER IH PRN (21:24)
[2021-02-06] MEDS ORDERED: PATIENT'S OWN MEDICATION (NON-FORMULARY) (Oxycodone Hcl/Acetaminophen [Endocet 7.5-325 Mg PO PRN (21:24)
[2021-02-06] MEDS ORDERED: DOCUSATE SODIUM 100 MG CAPSULE (FP) PO PRN (21:24)
[2021-02-06] MEDS ORDERED: oxyCODONE HCL 5 MG TABLET PO PRN (21:29)
[2021-02-06] MEDS ORDERED: ACETAMINOPHEN 325 MG TABLET (FP) PO PRN (21:29)
[2021-02-06] MEDS: ERYTHROMYCIN 0.5% OPHTHALMIC OINTMENT 3.5 GM TUBE OS SCH (23:09)
[2021-02-07 00:57] VITALS: BMI 26.1
[2021-02-07] MEDS: ACETAMINOPHEN 325 MG TABLET (FP) PO PRN (04:54)
[2021-02-07 07:37] LABS: HEMATOCRIT 38.4 % (32.4-45.2); HEMOGLOBIN 13.1 GM/dL (10.7-15.3); MCH 32.6 pg (25.7-33.7); MEAN CELL VOLUME 95.9 fl (80-96); MEAN PLT VOLUME 8.7 fl (7.5-11.1); PLATELET COUNT 172 K/MM3 (134-434); RDW 17.8 % (11.6-15.6); WHITE BLOOD COUNT 5.6 K/mm3 (4.0-10.0)
[2021-02-07 07:57] LABS: CHLORIDE 104 mmol/L (98-107); SODIUM 140 mmol/L (136-145)
[2021-02-07 08:03] LABS: ALBUMIN 3.1 g/dl (3.4-5.0); ANION GAP 4 MMOL/L (8-16); BLOOD UREA NITROGEN 12.4 mg/dL (7-18); CALCIUM 8.8 mg/dL (8.5-10.1); CO2 32 mmol/L (21-32); GLUCOSE,RANDOM 86 mg/dL (74-106); MAGNESIUM 2.2 mg/dL (1.8-2.4)
[2021-02-07 08:05] LABS: SGOT/AST 56 U/L (15-37); SGPT/ALT 36 U/L (13-61)
[2021-02-07 08:06] LABS: PHOSPHOROUS 2.4 mg/dL (2.5-4.9)
[2021-02-07 08:07] LABS: BILIRUBIN,TOTAL 0.6 mg/dL (0.2-1); TOT PROT 7.5 g/dl (6.4-8.2)
[2021-02-07 08:10] LABS: ALK PHOS 550 U/L (45-117)
[2021-02-07] MEDS ORDERED: DEXTROSE 5%-WATER - 50 ML IVPB ONE (09:46)
[2021-02-07] MEDS ORDERED: cefTRIAXone SODIUM 1 GM VIAL ONE (09:46)
[2021-02-07] MEDS: CEFTRIAXONE 1 GM in DEXTROSE 5%-WATER - 50 ML IVPB SCH (09:58)
[2021-02-07] MEDS: oxyCODONE HCL 5 MG TABLET PO PRN ×2 (09:58→22:35)
[2021-02-07] MEDS ORDERED: ENOXAPARIN NA (PORCINE) 40 MG/0.4 ML DISP.SYRIN SQ SCH (10:00)
[2021-02-07] MEDS: ERYTHROMYCIN 0.5% OPHTHALMIC OINTMENT 3.5 GM TUBE OS SCH (10:06)
[2021-02-07] MEDS ORDERED: MOXIFLOXACIN HCL 0.5% OPHTHALMIC 3 ML BOTTLE OS SCH ×3 (14:00→15:00)
[2021-02-07] MEDS ORDERED: PT OWN MED DRAWER 7, Y5N ONE ×2 (17:41→23:29)
[2021-02-07] MEDS: PREGABALIN 50 MG CAPSULE PO SCH (21:16)
[2021-02-07] MEDS: MYCOPHENOLATE MOFETIL 500 MG TABLET PO SCH (21:19)
[2021-02-07] MEDS: HEPARIN NA (PORCINE) 5,000 UNITS/ML 1ML VIAL SQ SCH (21:19)
[2021-02-07] MEDS: MOXIFLOXACIN HCL 0.5% OPHTHALMIC 3 ML BOTTLE OS SCH (21:20)
[2021-02-07] MEDS ORDERED: TOBRAMYCIN 0.3% OPHTH OINT 3.5 GM OS SCH ×2 (22:00)
[2021-02-08] MEDS: HEPARIN NA (PORCINE) 5,000 UNITS/ML 1ML VIAL SQ SCH ×3 (05:45→21:00)
[2021-02-08] MEDS: MYCOPHENOLATE MOFETIL 500 MG TABLET PO SCH ×3 (05:46→21:03)
[2021-02-08] MEDS: MOXIFLOXACIN HCL 0.5% OPHTHALMIC 3 ML BOTTLE OS SCH ×4 (05:47→21:01)
[2021-02-08] MEDS ORDERED: PT OWN MED DRAWER 7, Y5N ONE ×3 (06:16→20:37)
[2021-02-08 07:46] LABS: BASO % 0.9 % (0-2.0); EOS % 1.9 % (0-4.5); HEMATOCRIT 37.8 % (32.4-45.2); HEMOGLOBIN 12.6 GM/dL (10.7-15.3); LYMPH % 36.7 % (8-40); MCH 32.2 pg (25.7-33.7); MCHC 33.5 g/dl (32.0-36.0); MEAN CELL VOLUME 96.3 fl (80-96); MEAN PLT VOLUME 8.7 fl (7.5-11.1); MONO % 9.8 % (3.8-10.2); NEUT % 50.7 % (42.8-82.8); PLATELET COUNT 167 K/MM3 (134-434); RBC 3.93 M/mm3 (3.60-5.2); RDW 17.4 % (11.6-15.6); WHITE BLOOD COUNT 3.9 K/mm3 (4.0-10.0)
[2021-02-08 08:17] LABS: CALCIUM 8.7 mg/dL (8.5-10.1)
[2021-02-08 08:18] LABS: ALBUMIN 2.8 g/dl (3.4-5.0); MAGNESIUM 2.3 mg/dL (1.8-2.4)
[2021-02-08 08:20] LABS: BLOOD UREA NITROGEN 7.3 mg/dL (7-18)
[2021-02-08 08:22] LABS: BILIRUBIN,TOTAL 0.4 mg/dL (0.2-1); PHOSPHOROUS 2.7 mg/dL (2.5-4.9); TOT PROT 7.2 g/dl (6.4-8.2)
[2021-02-08] MEDS: oxyCODONE HCL 5 MG TABLET PO PRN ×2 (08:33→22:29)
[2021-02-08] MEDS ORDERED: cefTRIAXone SODIUM 1 GM VIAL ONE (10:04)
[2021-02-08] MEDS: PREGABALIN 50 MG CAPSULE PO SCH ×2 (10:10→21:02)
[2021-02-08] MEDS: CEFTRIAXONE 1 GM in DEXTROSE 5%-WATER - 50 ML IVPB SCH (10:10)
[2021-02-08] MEDS: ACETAMINOPHEN 325 MG TABLET (FP) PO PRN (17:34)
[2021-02-08] MEDS: TOBRAMYCIN 0.3% OPHTH OINT 3.5 GM OS SCH (21:01)
[2021-02-09] MEDS: HEPARIN NA (PORCINE) 5,000 UNITS/ML 1ML VIAL SQ SCH ×2 (05:22→13:07)
[2021-02-09] MEDS: MYCOPHENOLATE MOFETIL 500 MG TABLET PO SCH ×2 (05:22→13:07)
[2021-02-09] MEDS: oxyCODONE HCL 5 MG TABLET PO PRN (08:10)
[2021-02-09] MEDS ORDERED: DEXTROSE 5%-WATER - 50 ML IVPB ONE (08:48)
[2021-02-09] MEDS ORDERED: cefTRIAXone SODIUM 1 GM VIAL ONE (08:48)
[2021-02-09] MEDS: CEFTRIAXONE 1 GM in DEXTROSE 5%-WATER - 50 ML IVPB SCH (10:32)
[2021-02-09] MEDS: PREGABALIN 50 MG CAPSULE PO SCH (10:32)
[2021-02-09] MEDS: MOXIFLOXACIN HCL 0.5% OPHTHALMIC 3 ML BOTTLE OS SCH ×3 (10:34→17:31)
[2021-02-09] MEDS: TOBRAMYCIN 0.3% OPHTH OINT 3.5 GM OS SCH (10:34)
[2021-02-09 12:44] VITALS: PULSE 74
[2021-02-09 15:38] VITALS: BP 120/66; TEMP 98.5
[2021-02-09] MEDS: ACETAMINOPHEN 325 MG TABLET (FP) PO PRN (17:31)
[2021-02-10] MEDS ORDERED: CEFPODOXIME PROXETIL 100 MG TABLET PO SCH (10:00)
== END 2021-02-09 18:08 | disposition home or self-care (01) | DRG 720 ==
LOC: JER 14:35 → JERBED 17:35 → J8W 23:49
PROVIDERS: ADMIT Hospitalist; ATTEND Internal Medicine
DX: A41.9 Sepsis, unspecified organism (principal); N39.0 Urinary tract infection, site not specified; H10.9 Unspecified conjunctivitis; G62.9 Polyneuropathy, unspecified; G89.29 Other chronic pain; N18.9 Chronic kidney disease, unspecified; D86.84 Sarcoid pyelonephritis; G93.41 Metabolic encephalopathy; K21.9 Gastro-esophageal reflux disease without esophagitis
CPT/HCPCS: 36415; 70450-TC; 71045-TC-FY; 80053; 81003; 82962; 83036; 83735; 84100; 84484; 85025; 85027; 87040; 87086; 87186; 87899; 93005; 93010; 97116-GP; 97161-GP; 99285-25; C9803; J1644; J7517; U0003; U0005

== ENCOUNTER 2024-01-09 01:06 | Observation (INO) | payer OTHER ==
[2024-01-09 02:59] LABS: HEMATOCRIT 36.9 % (32.4-45.2); HEMOGLOBIN 11.7 GM/dL (10.7-15.3); MCH 26.1 pg (25.7-33.7); MCHC 31.6 g/dl (32.0-36.0); MEAN CELL VOLUME 82.8 fl (80-96); MEAN PLT VOLUME 7.7 fl (7.5-11.1); PLATELET COUNT 198 10^3/uL (134-434); RBC 4.46 M/mm3 (3.60-5.2); RDW 17.6 % (11.6-15.6)
[2024-01-09 03:04] LABS: INR 1.23 (0.83-1.09); PROTHROMBIN TIME (PATIENT) 14.2 SEC (9.7-13.0)
[2024-01-09 03:06] LABS: ACTIVATED PTT 40.8 SECONDS (25.2-36.5)
[2024-01-09] MEDS ORDERED: ACETAMINOPHEN INJECTION 100 ML IVPB ONE (03:26)
[2024-01-09 03:50] LABS: POTASSIUM 3.8 mmol/L (3.5-5.1)
[2024-01-09 03:51] LABS: CALCIUM 9.6 mg/dL (8.5-10.1)
[2024-01-09 03:52] LABS: BLOOD UREA NITROGEN 6.4 mg/dL (7-18)
[2024-01-09 03:57] LABS: BILIRUBIN,TOTAL 0.7 mg/dL (0.2-1); TOT PROT 8.3 g/dl (6.4-8.2)
[2024-01-09] MEDS: ACETAMINOPHEN 1000 MG/100 ML BAG IVPB ONE (04:27)
[2024-01-09] MEDS: SODIUM CHLORIDE 0.9% 500 ML INFUS.BAG IV ONE (04:27)
[2024-01-09 04:59] LABS: EPI CELLS >36 /uL (0-25.1); HYALINE CASTS 2 /uL (0-3.1); PH,URINE 6.5 (5.0-8.0); URINE APPEARANCE CLEAR; URINE BACTERIA 47 /uL (0-1359); URINE BILIRUBIN NEGATIVE (NEGATIVE); URINE COLOR DK YELLOW; URINE GLUCOSE (UA) NEGATIVE (NEGATIVE); URINE KETONE TRACE (NEGATIVE); URINE LEUK ESTERASE TRACE (NEGATIVE); URINE NITRITE NEGATIVE (NEGATIVE); URINE PROTEIN TRACE (NEGATIVE); URINE RBC 23 /uL (0-23.9); URINE WBC 19 /uL (0-25.8)
[2024-01-09 05:46] LABS: MAGNESIUM 1.7 mg/dL (1.8-2.4)
[2024-01-09] MEDS ORDERED: KETOROLAC TROMETHAMINE 30 MG/1 ML VIAL ONE (05:58)
[2024-01-09] MEDS: KETOROLAC TROMETHAMINE 30 MG/1 ML VIAL IVPUSH ONE (06:03)
[2024-01-09] MEDS ORDERED: ALBUTEROL SO4 0.083% IH SOL 2.5 MG/3 ML VIAL.NEB. NEB PRN (09:25)
[2024-01-09] MEDS ORDERED: PATIENT'S OWN MEDICATION (NON-FORMULARY) (Oxycodone Hcl/Acetaminophen [Endocet 10-325 Mg T PO PRN (09:28)
[2024-01-09] MEDS ORDERED: MAGNESIUM SULFATE IN WATER 2 GM/50 ML IVPB IVPB ONE (09:39)
[2024-01-09] MEDS: MAGNESIUM 2GM/50ML STERILE WATER IVPB IVPB ONE (09:57)
[2024-01-09] MEDS ORDERED: ACETAMINOPHEN 325 MG TABLET (FP) PO PRN (11:00)
[2024-01-09] MEDS ORDERED: LORATADINE 10 MG TABLET ONE (11:21)
[2024-01-09] MEDS ORDERED: FOLIC ACID 1 MG TABLET (FP) ONE (11:21)
[2024-01-09] MEDS ORDERED: ENOXAPARIN NA (PORCINE) 40 MG/0.4 ML DISP.SYRIN SQ ONE (11:22)
[2024-01-09] MEDS ORDERED: KETOROLAC TROMETHAMINE 15 MG/ML VIAL ONE (11:22)
[2024-01-09] MEDS: CYANOCOBALAMIN 1,000 MCG TABLET (FP) PO SCH (12:01)
[2024-01-09] MEDS: FOLIC ACID 1 MG TABLET (FP) PO SCH (12:02)
[2024-01-09] MEDS: LORATADINE 10 MG TABLET PO SCH (12:02)
[2024-01-09] MEDS: ENOXAPARIN NA (PORCINE) 40 MG/0.4 ML DISP.SYRIN SQ SCH (12:02)
[2024-01-09] MEDS: KETOROLAC TROMETHAMINE 15 MG/ML VIAL IM ONE (12:03)
[2024-01-09] MEDS: MYCOPHENOLATE MOFETIL 500 MG TABLET PO SCH (12:03)
[2024-01-09] MEDS ORDERED: ERYTHROMYCIN 0.5% OPHTHALMIC OINTMENT 3.5 GM TUBE ONE (14:23)
[2024-01-09] MEDS: ERYTHROMYCIN 0.5% OPHTHALMIC OINTMENT 3.5 GM TUBE OS SCH (14:24)
[2024-01-09] MEDS: ACETAMINOPHEN 500 MG TABLET (FP) PO SCH (14:41)
[2024-01-09] MEDS ORDERED: oxyCODONE HCL 5 MG TABLET ONE (18:16)
[2024-01-09] MEDS: oxyCODONE HCL 5 MG TABLET PO PRN (18:19)
[2024-01-09] MEDS ORDERED: MONTELUKAST NA 10 MG TABLET ONE (22:41)
[2024-01-09] MEDS: MONTELUKAST NA 10 MG TABLET PO SCH (22:48)
[2024-01-10 01:23] VITALS: RESP 18; BMI 29.0
[2024-01-10] MEDS: KETOROLAC TROMETHAMINE 15 MG/ML VIAL IM PRN (02:35)
[2024-01-10 08:28] LABS: BASO % 0.6 % (0-2.0); HEMATOCRIT 34.2 % (32.4-45.2); HEMOGLOBIN 10.5 GM/dL (10.7-15.3); LYMPH % 40.3 % (8-40); MCHC 30.9 g/dl (32.0-36.0); MEAN CELL VOLUME 84.4 fl (80-96); MEAN PLT VOLUME 7.9 fl (7.5-11.1); MONO % 8.7 % (3.8-10.2); NEUT % 47.4 % (42.8-82.8); PLATELET COUNT 150 10^3/uL (134-434); RBC 4.05 M/mm3 (3.60-5.2)
[2024-01-10 08:30] LABS: CHLORIDE 102 mmol/L (98-107); POTASSIUM 4.1 mmol/L (3.5-5.1); SODIUM 139 mmol/L (136-145)
[2024-01-10 08:37] LABS: ALBUMIN 2.7 g/dl (3.4-5.0); ANION GAP 7 mmol/L (4-13); BLOOD UREA NITROGEN 11.5 mg/dL (7-18); CALCIUM 9.8 mg/dL (8.5-10.1); CO2 30 mmol/L (21-32); GLUCOSE,RANDOM 85 mg/dL (74-106); MAGNESIUM 2.1 mg/dL (1.8-2.4); SGOT/AST 61 U/L (15-37); SGPT/ALT 33 U/L (13-61)
[2024-01-10 08:38] LABS: BILIRUBIN,TOTAL 0.9 mg/dL (0.2-1)
[2024-01-10 08:39] LABS: CREATININE 1.1 mg/dL (0.55-1.3); PHOSPHOROUS 3.6 mg/dL (2.5-4.9); TOT PROT 7.5 g/dl (6.4-8.2)
[2024-01-10 08:41] LABS: ALK PHOS 338 U/L (45-117)
[2024-01-10] MEDS: METHYL SALICYLATE/MENTHOL OINT 30 GM TUBE TP SCH (14:11)
[2024-01-11] MEDS: ALBUTEROL SO4 HFA INHALER IH PRN (09:40)
[2024-01-11] MEDS: LIDOCAINE 4% PATCH TP SCH (09:41)
[2024-01-11] MEDS: CYCLOBENZAPRINE HCL 5 MG TABLET PO PRN (09:42)
[2024-01-11] MEDS: GABAPENTIN 300 MG CAPSULE PO SCH (09:43)
[2024-01-11] MEDS: ACETAMINOPHEN 500 MG TABLET (FP) PO SCH (14:49)
[2024-01-11 15:05] VITALS: BP 101/57
[2024-01-11 18:09] VITALS: PULSE 76; TEMP 98.1
[2024-01-11] MEDS ORDERED: LIDOCAINE PATCH REMOVAL MC SCH (22:00)
== END 2024-01-11 19:20 ==
LOC: JER 01:06 → JERBED 06:22 → J8W 01-10 00:15
PROVIDERS: ADMIT Internal Medicine; ATTEND Nurse Practitioner Acute Care
PROC: 3E033NZ Introduction of Analgesics, Hypnotics, Sedatives into Peripheral Vein, Percutaneous Approach (ICD-10-PCS; principal; 2024-01-09)
PROC: 3E0333Z Introduction of Anti-inflammatory into Peripheral Vein, Percutaneous Approach (ICD-10-PCS; 2024-01-09)
PROC: 3E033GC Introduction of Other Therapeutic Substance into Peripheral Vein, Percutaneous Approach (ICD-10-PCS; 2024-01-09)
PROC: 3E023GC Introduction of Other Therapeutic Substance into Muscle, Percutaneous Approach (ICD-10-PCS; 2024-01-09)
PROC: 3E0233Z Introduction of Anti-inflammatory into Muscle, Percutaneous Approach (ICD-10-PCS; 2024-01-09)
DX: M17.11 Unilateral primary osteoarthritis, right knee (principal); H10.9 Unspecified conjunctivitis; M81.0 Age-related osteoporosis without current pathological fracture; H54.62 Unqualified visual loss, left eye, normal vision right eye; R53.1 Weakness; R26.2 Difficulty in walking, not elsewhere classified; I10 Essential (primary) hypertension; W18.39XA Other fall on same level, initial encounter; D86.9 Sarcoidosis, unspecified; Y93.89 Activity, other specified; N28.9 Disorder of kidney and ureter, unspecified; J45.909 Unspecified asthma, uncomplicated; Y92.009 Unspecified place in unspecified non-institutional (private) residence as the place of occurrence of the external cause; M54.50 Low back pain, unspecified; G89.29 Other chronic pain; F11.90 Opioid use, unspecified, uncomplicated; Z91.013 Allergy to seafood; Z88.8 Allergy status to other drugs, medicaments and biological substances
CPT/HCPCS: 0241U-QW; 36415; 70552-TC; 71045-TC-FY; 72131-TC; 72170-TC-FY; 73521-TC-FY; 73552-TC-LT-FY; 73552-TC-RT-FY; 73562-TC-LT-FY; 73562-TC-RT-FY; 80053; 81003; 82607; 83735; 84100; 84155; 84165; 84439; 84443; 84484; 85025; 85610; 85730; 86038; 87086; 93005; 93010; 96372; 96374; 96375; 97116-GP; 97161-GP; 99285-25; G0378; J0131; J7517

== ENCOUNTER 2024-01-17 15:22 | Inpatient (IN) | payer OTHER ==
[2024-01-17 17:03] LABS: VENOUS BASE EXCESS -0.5 mmol/L (-2-2); VENOUS O2 SATURATION 89.2 % (70-80); VENOUS PCO2 64.9 mmHg (38-52); VENOUS PH 7.256 (7.310-7.410)
[2024-01-17 17:07] LABS: BASO % 0.1 % (0-2.0); HEMATOCRIT 36.4 % (32.4-45.2); HEMOGLOBIN 11.6 GM/dL (10.7-15.3); LYMPH % 5.9 % (8-40); MCH 26.8 pg (25.7-33.7); MEAN CELL VOLUME 83.7 fl (80-96); MEAN PLT VOLUME 7.6 fl (7.5-11.1); MONO % 2.2 % (3.8-10.2); NEUT % 91.8 % (42.8-82.8); PLATELET COUNT 204 10^3/uL (134-434); RBC 4.35 M/mm3 (3.60-5.2); WHITE BLOOD COUNT 10.3 K/mm3 (4.0-10.0)
[2024-01-17 17:10] LABS: INR 0.98 (0.83-1.09); PROTHROMBIN TIME (PATIENT) 11.4 SEC (9.7-13.0)
[2024-01-17 17:12] LABS: ACTIVATED PTT 30.4 SECONDS (25.2-36.5)
[2024-01-17 17:31] LABS: CALCIUM 9.6 mg/dL (8.5-10.1)
[2024-01-17 17:35] LABS: ANISOCYTOSIS 2+; CREATININE 1.8 mg/dL (0.55-1.3); MACROCYTOSIS 0
[2024-01-17 17:36] LABS: BILIRUBIN,TOTAL 0.8 mg/dL (0.2-1); TOT PROT 8.3 g/dl (6.4-8.2)
[2024-01-17 17:42] LABS: BLOOD UREA NITROGEN 44.4 mg/dL (7-18)
[2024-01-17] MEDS ORDERED: PIPERACILLIN/TAZOB 3.375 GM 3.375 GM/50 ML BAG IVPB ONE (17:53)
[2024-01-17] MEDS: SODIUM CHLORIDE 0.9% 500 ML INFUS.BAG IV ONE (18:02)
[2024-01-17] MEDS: PIPERACILLIN/TAZOB 3.375 GM 3.375 GM in DEXTROSE 5%-WATER - 50 ML IVPB ONE (18:03)
[2024-01-17] MEDS: VANCOMYCIN HCL 1,500 MG in DEXTROSE 5%-WATER - 500 ML IVPB ONE (19:52)
[2024-01-17 20:54] LABS: VENOUS BASE EXCESS -2.6 mmol/L (-2-2); VENOUS O2 SATURATION 59.6 % (70-80); VENOUS PCO2 61.3 mmHg (38-52); VENOUS PH 7.241 (7.310-7.410)
[2024-01-17 21:00] LABS: PH,URINE 5.5 (5.0-8.0); URINE APPEARANCE CLEAR; URINE BILIRUBIN NEGATIVE (NEGATIVE); URINE COLOR YELLOW; URINE GLUCOSE (UA) NEGATIVE (NEGATIVE); URINE KETONE NEGATIVE (NEGATIVE); URINE LEUK ESTERASE NEGATIVE (NEGATIVE); URINE NITRITE NEGATIVE (NEGATIVE); URINE PROTEIN NEGATIVE (NEGATIVE)
[2024-01-17 23:31] VITALS: BMI 29.6
[2024-01-18] MEDS ORDERED: ALBUTEROL SO4 2.5/IPRATROPIUM 0.5 INH SOL 3 ML VIAL.NEB. NEB PRN (05:57)
[2024-01-18 08:30] LABS: BASO % 0.1 % (0-2.0); HEMATOCRIT 35.1 % (32.4-45.2); LYMPH % 11.5 % (8-40); MCH 26.4 pg (25.7-33.7); MCHC 31.4 g/dl (32.0-36.0); MEAN CELL VOLUME 83.8 fl (80-96); MEAN PLT VOLUME 7.5 fl (7.5-11.1); MONO % 5.9 % (3.8-10.2); NEUT % 82.5 % (42.8-82.8); PLATELET COUNT 206 10^3/uL (134-434); RBC 4.18 M/mm3 (3.60-5.2); RDW 18.2 % (11.6-15.6); WHITE BLOOD COUNT 10.7 K/mm3 (4.0-10.0)
[2024-01-18 08:53] LABS: POTASSIUM 4.4 mmol/L (3.5-5.1)
[2024-01-18 09:00] LABS: BLOOD UREA NITROGEN 36.5 mg/dL (7-18)
[2024-01-18 09:03] LABS: CALCIUM 9.7 mg/dL (8.5-10.1)
[2024-01-18 09:06] LABS: CREATININE 1.4 mg/dL (0.55-1.3)
[2024-01-18] MEDS: PIPERACILLIN/TAZOB 3.375 GM 3.375 GM in DEXTROSE 5%-WATER - 50 ML IVPB SCH (09:09)
[2024-01-18] MEDS: VANCOMYCIN/WATER FOR INJ (PEG) 1,000 MG/200 ML BAG IVPB SCH (09:09)
[2024-01-18] MEDS: DULoxetine HCL 30 MG CAPSULE.DR PO SCH (09:10)
[2024-01-18] MEDS: LORATADINE 10 MG TABLET PO SCH (09:10)
[2024-01-18] MEDS: predniSONE 20 MG TABLET (UD) PO SCH (09:10)
[2024-01-18] MEDS: guaiFENesin 200 MG/10 ML 10 ML UNIT-DOSE CUPS PO PRN (09:18)
[2024-01-18] MEDS: MYCOPHENOLATE MOFETIL 500 MG TABLET PO SCH (09:18)
[2024-01-18] MEDS ORDERED: PIPERACILLIN/TAZOB 3.375 GM 3.375 GM in DEXTROSE 5%-WATER - 50 ML IVPB SCH (10:00)
[2024-01-18] MEDS: oxyCODONE HCL 5 MG TABLET PO PRN (16:35)
[2024-01-18] MEDS: CEFTRIAXONE 1 GM in DEXTROSE 5%-WATER - 50 ML IVPB SCH (16:43)
[2024-01-18] MEDS ORDERED: ALBUTEROL SO4 0.083% IH SOL 2.5 MG/3 ML VIAL.NEB. NEB PRN (17:10)
[2024-01-18 17:58] LABS: ARTERIAL BLD GAS O2 SATURATION 89.2 % (95-98); ARTERIAL BLOOD GAS BASE EXCESS -1.3 mmol/L (-2-2); ARTERIAL BLOOD GAS PO2 58.3 mmHg (80-100); ARTERIAL BLOOD GAS pH 7.361 (7.350-7.450)
[2024-01-18 18:02] LABS: ALLENS TEST POSITIVE
[2024-01-18] MEDS: FLUTICASONE/UMECLIDIN/VILANTER(200-62.5-25 TRELEGY ELLIPTA) INAHLER IH SCH (19:30)
[2024-01-18] MEDS ORDERED: VANCOMYCIN 1,000 MG in DEXTROSE 5%-WATER - 250 ML IVPB SCH (20:00)
[2024-01-18] MEDS: ACETAMINOPHEN 500 MG TABLET (FP) PO PRN (21:07)
[2024-01-18] MEDS: MONTELUKAST NA 10 MG TABLET PO SCH (21:09)
[2024-01-19] MEDS: ONDANSETRON 4 MG/2 ML VIAL IVPUSH ONE (09:50)
[2024-01-19] MEDS: POLYETHYLENE GLYCOL (HEALTHYLAX) 3350 17 GM PACKET PO SCH (18:36)
[2024-01-20] MEDS: PANTOPRAZOLE 20 MG TABLET PO SCH (09:05)
[2024-01-20 11:35] LABS: BASO % 0.3 % (0-2.0); EOS % 0.2 % (0-4.5); HEMATOCRIT 35.7 % (32.4-45.2); HEMOGLOBIN 11.5 GM/dL (10.7-15.3); LYMPH % 12.1 % (8-40); MCH 26.7 pg (25.7-33.7); MCHC 32.2 g/dl (32.0-36.0); MEAN PLT VOLUME 7.5 fl (7.5-11.1); MONO % 6.5 % (3.8-10.2); NEUT % 80.9 % (42.8-82.8); PLATELET COUNT 214 10^3/uL (134-434); RDW 17.3 % (11.6-15.6); WHITE BLOOD COUNT 9.7 K/mm3 (4.0-10.0)
[2024-01-20 11:55] LABS: POTASSIUM 3.7 mmol/L (3.5-5.1)
[2024-01-20 11:57] LABS: BLOOD UREA NITROGEN 22.1 mg/dL (7-18); CALCIUM 10.3 mg/dL (8.5-10.1)
[2024-01-20 12:00] LABS: CREATININE 0.9 mg/dL (0.55-1.3)
[2024-01-21] MEDS: predniSONE 5 MG TABLET (UD) PO SCH (09:25)
[2024-01-23 08:45] LABS: BASO % 0.8 % (0-2.0); EOS % 1.2 % (0-4.5); HEMATOCRIT 37.3 % (32.4-45.2); HEMOGLOBIN 11.5 GM/dL (10.7-15.3); LYMPH % 16.8 % (8-40); MCH 26.1 pg (25.7-33.7); MCHC 30.8 g/dl (32.0-36.0); MEAN CELL VOLUME 84.6 fl (80-96); MEAN PLT VOLUME 8.7 fl (7.5-11.1); MONO % 6.5 % (3.8-10.2); NEUT % 74.7 % (42.8-82.8); PLATELET COUNT 221 10^3/uL (134-434); RBC 4.41 M/mm3 (3.60-5.2); RDW 17.5 % (11.6-15.6); WHITE BLOOD COUNT 8.2 K/mm3 (4.0-10.0)
[2024-01-23] MEDS: POLYETHYLENE GLYCOL (HEALTHYLAX) 3350 17 GM PACKET PO SCH (11:10)
[2024-01-23 12:11] LABS: BASO % 0.5 % (0-2.0); HEMATOCRIT 37.3 % (32.4-45.2); HEMOGLOBIN 11.6 GM/dL (10.7-15.3); MCH 26.3 pg (25.7-33.7); MCHC 31.2 g/dl (32.0-36.0); MEAN CELL VOLUME 84.5 fl (80-96); MEAN PLT VOLUME 8.4 fl (7.5-11.1); MONO % 6.8 % (3.8-10.2); NEUT % 72.7 % (42.8-82.8); PLATELET COUNT 236 10^3/uL (134-434); RBC 4.42 M/mm3 (3.60-5.2); RDW 16.8 % (11.6-15.6); WHITE BLOOD COUNT 8.7 K/mm3 (4.0-10.0)
[2024-01-24 07:40] LABS: BASO % 0.7 % (0-2.0); HEMOGLOBIN 11.8 GM/dL (10.7-15.3); LYMPH % 22.4 % (8-40); MCHC 31.9 g/dl (32.0-36.0); MEAN CELL VOLUME 84.5 fl (80-96); MEAN PLT VOLUME 8.6 fl (7.5-11.1); MONO % 7.8 % (3.8-10.2); NEUT % 68.1 % (42.8-82.8); PLATELET COUNT 254 10^3/uL (134-434); RBC 4.38 M/mm3 (3.60-5.2); RDW 17.1 % (11.6-15.6); WHITE BLOOD COUNT 7.9 K/mm3 (4.0-10.0)
[2024-01-24 07:50] LABS: POTASSIUM 3.9 mmol/L (3.5-5.1)
[2024-01-24 07:53] LABS: CALCIUM 10.6 mg/dL (8.5-10.1)
[2024-01-24 07:54] LABS: BLOOD UREA NITROGEN 22.2 mg/dL (7-18)
[2024-01-24 07:57] LABS: CREATININE 0.8 mg/dL (0.55-1.3)
[2024-01-24] MEDS: ARTIFICIAL TEARS OPHTHALMIC DROPS OU PRN (16:50)
[2024-01-25 09:09] VITALS: RESP 18
[2024-01-25 15:09] VITALS: BP 131/76; PULSE 117; TEMP 97.9
[2024-01-25 15:16] LABS: BASO % 0.8 % (0-2.0); EOS % 1.2 % (0-4.5); HEMATOCRIT 41.4 % (32.4-45.2); HEMOGLOBIN 13.2 GM/dL (10.7-15.3); LYMPH % 19.4 % (8-40); MCH 26.6 pg (25.7-33.7); MCHC 31.8 g/dl (32.0-36.0); MEAN CELL VOLUME 83.7 fl (80-96); MEAN PLT VOLUME 8.7 fl (7.5-11.1); NEUT % 68.6 % (42.8-82.8); PLATELET COUNT 325 10^3/uL (134-434); RBC 4.95 M/mm3 (3.60-5.2); RDW 17.2 % (11.6-15.6); WHITE BLOOD COUNT 12.2 K/mm3 (4.0-10.0)
== END 2024-01-25 18:11 | DRG 142 ==
LOC: JER 15:22 → JERBED 20:45 → J4S 23:08 → OBSVTOIN 01-19 16:22
PROVIDERS: ADMIT Internal Medicine; ATTEND Family Medicine
DX: D86.0 Sarcoidosis of lung (principal); J96.02 Acute respiratory failure with hypercapnia; F11.20 Opioid dependence, uncomplicated; G62.9 Polyneuropathy, unspecified; I24.89 Other forms of acute ischemic heart disease; F17.200 Nicotine dependence, unspecified, uncomplicated; J45.909 Unspecified asthma, uncomplicated; K59.03 Drug induced constipation; K64.9 Unspecified hemorrhoids; K92.1 Melena; I12.9 Hypertensive chronic kidney disease with stage 1 through stage 4 chronic kidney disease, or unspecified chronic kidney disease; N18.9 Chronic kidney disease, unspecified; T40.2X5A Adverse effect of other opioids, initial encounter; X58.XXXA Exposure to other specified factors, initial encounter; Y93.9 Activity, unspecified; Y92.9 Unspecified place or not applicable
CPT/HCPCS: 0241U-QW; 36415; 36600; 70450-TC; 70480-TC; 71045-TC-FY; 71250-TC; 80048; 80053; 81003; 82272; 82803; 83605; 84439; 84443; 84484; 85025; 85610; 85730; 86850; 86900; 86901; 87040; 87081; 87086; 87633; 87899; 93005; 93010; 93306-TC; 97161-GP; 99285-25; G0378; J7517